=== PATIENT | female | born 1965 | race Caucasian/White ===

== ENCOUNTER → 2016-05-12 | Outpatient (CLI) | payer OTHER, MEDICARE ==
[~2016-05-12] MED LIST: ACETAMINOPHEN-H1 TA2 PO; BACTRIM DS 8001 TA1 PO; CLEOCIN HCL300 MG PO; CRESTOR10 M1 PO; FLEXERIL10 MG PO; HYDR25T PO; HYDROCHLOROTHIA25 M1 PO; HYDROCODONE BIT1 T11 PO; MOTRIN800 MG PO; POTASSIUM CHLO20 ME3 PO; PREDNISONE10 MG PO; PRILOSEC20 M2 PO; PSYCH MEDS; PYRIDIUM200 M1 PO; ROBITUSSIN DM 105 ML PO; ULTRAM50 MG PO; VITAMIN D PO; VITAMIN D50000 I3 PO
--- NOTE | ~2016-05-12 | PF ---
[place], [place] PULMONARY FUNCTION TEST NAME: MISSY ROBLEDO UNIT #: [id number] ROOM: DOCTOR: JULIANA RODGERS MD,NIKKI BIRTHDATE: [birth year] DOS: 05/12/2016 ORDERED BY: Chino Coronel, nurse practitioner. HISTORY: The patient was recorded 51-year-old outpatient, female, height of 65 inches, weight of 164 pounds. The testing was done for assessment of chronic cough which has noted productive of shortness of breath with exertion. There was no wheezing. Chronic tobacco use noted half a pack of cigarettes per day for 40 years. SPIROMETRY: The FVC was recorded at 3.37 liters, 93% predicted value normal. The FEV1 recorded with 2.75 liters and 96% predicted value normal as well. 11% improvement noted in FVC and 10% improvement noted in FEV1 did not meet the ATS criteria or significant partial improvement. The ratio of FEV1/FVC was recorded as 81%. Flow volume loop was essentially noted with suggestion of mild obstructive airway pattern. The lung volumes, thoracic gas volume recorded 114%, residual volume 126%, total lung capacity of 112%. Lung volumes were noted normal. The patient's lung diffusion noted mild to moderately decreased at 62% without correction of carbon monoxide or hemoglobin values. The patient's airway resistance and passive conductance were noted normal; however, partial improvement occurs, post-bronchodilator test. FINAL IMPRESSION: The test was suggested possibility of mild reversible obstructive airway pattern for this patient with possible diagnosis of bronchial asthma would be considered and clinical correlated to the patient current history. NIKKI ANDREWS MD CM:PFREPORT:PULMONARY FUNCTION TEST [id number] NIKKI RODGERS MD
== END | disposition home or self-care (01) ==
LOC: CP 08:19
DX: R05 Cough (principal)

== ENCOUNTER → 2016-06-25 | Outpatient (CLI) | payer OTHER, MEDICARE ==
[2016-06-25 11:03] LABS: BASO # 0.1 10*3/uL (0.0-0.1); EOS # 0.2 10*3/uL (0.0-0.4); EOS % 2.8 % (1.0-4.0); HEMATOCRIT 39.5 % (37.0-47.0); HEMOGLOBIN 13.6 g/dl (12.0-16.0); LYMPH # 2.2 10*3/uL (1.3-4.4); LYMPH % 32.6 % (27.0-41.0); MEAN CELL VOLUME 94.5 fl (81.0-99.0); MEAN CORPUSCULAR HGB 32.5 pg (27.0-31.0); MEAN CORPUSCULAR HGB CONC 34.4 g/dl (33.0-37.0); MEAN PLATELET VOLUME 9.1 fl (9.6-12.3); MONO # 0.4 10*3/uL (0.1-1.0); MONO % 6.2 % (3.0-9.0); NEUT # 3.9 10*3/uL (2.3-7.9); NEUT % 57.1 % (47.0-73.0); PLATELET COUNT AUTOMATED 351 10*3/uL (130-400); RED BLOOD COUNT 4.18 10*6/uL (4.10-5.10); RED CELL DISTRI WIDTH 12.8 % (0-14.5); WHITE BLOOD COUNT 6.8 10*3/uL (4.8-10.8)
[2016-06-25 11:34] LABS: ALBUMIN 3.9 gm/dl (3.1-4.5); ALKALINE PHOSPHATASE 77 U/L (45-117); BILIRUBIN, TOTAL 0.4 mg/dl (0.2-1.0); BUN 11 mg/dl (7-24); CARBON DIOXIDE 27 mmol/L (21-32); CHLORIDE 105 mmol/L (98-107); CHOLESTEROL 182 mg/dL (<200); EST GLOM FILT AFRICAN AMERICAN > 60 ml/min; GLUCOSE 105 mg/dL (65-99); HDL CHOLESTEROL 85 mg/dl (40-60); LDL CHOLESTEROL 75 mg/dL (9-159); POTASSIUM 3.6 mmol/L (3.5-5.1); SGOT/AST 25 IU/L (3-35); SGPT/ALT 25 U/L (12-78); SODIUM 142 mmol/L (136-145); TOTAL PROTEIN 7.9 gm/dL (6.4-8.2); TRIGLYCERIDES 111 mg/dl (<150); VLDL CHOLESTEROL 22 mg/dL (6-40)
[2016-06-25 11:37] LABS: HEMOGLOBIN A1c 5.3 % (4.8-5.6)
== END | disposition home or self-care (01) ==
LOC: LAB 10:24
PROVIDERS: Psychiatry & Neurology Psychiatry
DX: I10 Essential (primary) hypertension (principal); E78.2 Mixed hyperlipidemia; E55.9 Vitamin D deficiency, unspecified; R63.4 Abnormal weight loss; F31.9 Bipolar disorder, unspecified

== ENCOUNTER → 2016-07-21 | Outpatient (CLI) | payer OTHER, MEDICARE | END | disposition home or self-care (01) | LOC: US 07-19 18:00 | DX: R10.2 Pelvic and perineal pain (principal); R19.8 Other specified symptoms and signs involving the digestive system and abdomen ==

== ENCOUNTER → 2016-11-08 | Outpatient (CLI) | payer OTHER, MEDICARE ==
[2016-11-08 10:21] LABS: BASO # 0.1 10*3/uL (0.0-0.1); BASO % 0.8 % (0.0-1.0); EOS # 0.2 10*3/uL (0.0-0.4); EOS % 3.7 % (1.0-4.0); HEMATOCRIT 41.9 % (37.0-47.0); HEMOGLOBIN 14.2 g/dl (12.0-16.0); LYMPH # 2.4 10*3/uL (1.3-4.4); LYMPH % 39.6 % (27.0-41.0); MEAN CELL VOLUME 96.8 fl (81.0-99.0); MEAN CORPUSCULAR HGB 32.8 pg (27.0-31.0); MEAN CORPUSCULAR HGB CONC 33.9 g/dl (33.0-37.0); MEAN PLATELET VOLUME 9.2 fl (9.6-12.3); MONO # 0.5 10*3/uL (0.1-1.0); MONO % 8.2 % (3.0-9.0); NEUT # 2.8 10*3/uL (2.3-7.9); NEUT % 47.5 % (47.0-73.0); PLATELET COUNT AUTOMATED 280 10*3/uL (130-400); RED BLOOD COUNT 4.33 10*6/uL (4.10-5.10); RED CELL DISTRI WIDTH 12.6 % (0-14.5); WHITE BLOOD COUNT 5.9 10*3/uL (4.8-10.8)
[2016-11-08 10:45] LABS: ALBUMIN 3.6 gm/dl (3.1-4.5); ALKALINE PHOSPHATASE 86 U/L (45-117); BUN 9 mg/dl (7-24); CHLORIDE 107 mmol/L (98-107); CHOLESTEROL 189 mg/dL (<200); CREATININE 0.75 mg/dL (0.55-1.02); HDL CHOLESTEROL 55 mg/dl (40-60); LDL CHOLESTEROL 115 mg/dL (9-159); POTASSIUM 4.4 mmol/L (3.5-5.1); SGOT/AST 17 IU/L (3-35); SGPT/ALT 22 U/L (12-78); SODIUM 141 mmol/L (136-145); TOTAL PROTEIN 7.9 gm/dL (6.4-8.2); TRIGLYCERIDES 95 mg/dl (<150); VLDL CHOLESTEROL 19 mg/dL (6-40)
== END | disposition home or self-care (01) ==
LOC: LAB 09:57
PROVIDERS: Nurse Practitioner Family
DX: I10 Essential (primary) hypertension (principal); E78.4 Other hyperlipidemia; E56.9 Vitamin deficiency, unspecified; E55.9 Vitamin D deficiency, unspecified

== ENCOUNTER → 2017-03-20 | Outpatient (CLI) | payer OTHER, MEDICARE ==
[~2017-03-20] MED LIST changes: +Motrin,Rufen800 MG PO
[2017-03-20 10:21] LABS: BASO # 0.1 10*3/uL (0.0-0.1); BASO % 0.8 % (0.0-1.0); EOS # 0.1 10*3/uL (0.0-0.4); EOS % 1.6 % (1.0-4.0); HEMATOCRIT 39.8 % (37.0-47.0); HEMOGLOBIN 13.7 g/dl (12.0-16.0); LYMPH # 2.3 10*3/uL (1.3-4.4); LYMPH % 29.2 % (27.0-41.0); MEAN CELL VOLUME 92.3 fl (81.0-99.0); MEAN CORPUSCULAR HGB 31.8 pg (27.0-31.0); MEAN CORPUSCULAR HGB CONC 34.4 g/dl (33.0-37.0); MEAN PLATELET VOLUME 9.4 fl (9.6-12.3); MONO # 0.6 10*3/uL (0.1-1.0); MONO % 7.3 % (3.0-9.0); NEUT # 4.8 10*3/uL (2.3-7.9); NEUT % 60.8 % (47.0-73.0); PLATELET COUNT AUTOMATED 362 10*3/uL (130-400); RED BLOOD COUNT 4.31 10*6/uL (4.10-5.10); RED CELL DISTRI WIDTH 12.2 % (0-14.5); WHITE BLOOD COUNT 7.9 10*3/uL (4.8-10.8)
[2017-03-20 10:35] LABS: ALBUMIN 3.8 gm/dl (3.1-4.5); ALKALINE PHOSPHATASE 83 U/L (45-117); BUN 10 mg/dl (7-24); CHLORIDE 103 mmol/L (98-107); CHOLESTEROL 209 mg/dL (<200); CREATININE 0.81 mg/dL (0.55-1.02); HDL CHOLESTEROL 60 mg/dl (40-60); LDL CHOLESTEROL 123 mg/dL (9-159); SGOT/AST 14 IU/L (3-35); SGPT/ALT 17 U/L (12-78); SODIUM 138 mmol/L (136-145); TOTAL PROTEIN 7.7 gm/dL (6.4-8.2); TRIGLYCERIDES 132 mg/dl (<150); VLDL CHOLESTEROL 26 mg/dL (6-40)
== END ==
LOC: LAB 09:46
PROVIDERS: Nurse Practitioner Family
DX: E78.2 Mixed hyperlipidemia (principal); F32.9 Major depressive disorder, single episode, unspecified; J44.9 Chronic obstructive pulmonary disease, unspecified

== ENCOUNTER 2017-03-24 23:06 | Emergency (ER) | payer OTHER, MEDICARE ==
[~2017-03-24] VITALS: Ht 172.7 cm; Wt 68.0 kg
[~2017-03-24 23:06] MED LIST changes: -Motrin,Rufen800 MG PO
[2017-03-25] MEDS ORDERED: Motrin,Rufen800 MG PO (02:19)
== END 2017-03-25 02:31 | disposition home or self-care (01) ==
LOC: ED 23:06
DX: M25.512 Pain in left shoulder (principal); F17.200 Nicotine dependence, unspecified, uncomplicated; Z98.890 Other specified postprocedural states; Z90.49 Acquired absence of other specified parts of digestive tract; Z88.5 Allergy status to narcotic agent; Z88.0 Allergy status to penicillin; Z79.899 Other long term (current) drug therapy; X50.1XXA Overexertion from prolonged static or awkward postures, initial encounter; Y93.89 Activity, other specified; Y92.89 Other specified places as the place of occurrence of the external cause; Y99.9 Unspecified external cause status

== ENCOUNTER → 2017-06-22 | Outpatient (CLI) | payer OTHER, MEDICARE ==
[~2017-06-22] MED LIST changes: +Motrin,Rufen800 MG PO
[2017-06-22 09:32] LABS: BASO # 0.1 10*3/uL (0.0-0.1); EOS # 0.2 10*3/uL (0.0-0.4); EOS % 2.5 % (1.0-4.0); HEMATOCRIT 40.1 % (37.0-47.0); HEMOGLOBIN 13.4 g/dl (12.0-16.0); LYMPH # 2.2 10*3/uL (1.3-4.4); LYMPH % 36.7 % (27.0-41.0); MEAN CELL VOLUME 98.8 fl (81.0-99.0); MEAN CORPUSCULAR HGB CONC 33.4 g/dl (33.0-37.0); MEAN PLATELET VOLUME 9.7 fl (9.6-12.3); MONO # 0.5 10*3/uL (0.1-1.0); MONO % 7.9 % (3.0-9.0); NEUT # 3.1 10*3/uL (2.3-7.9); NEUT % 51.7 % (47.0-73.0); PLATELET COUNT AUTOMATED 336 10*3/uL (130-400); RED BLOOD COUNT 4.06 10*6/uL (4.10-5.10); RED CELL DISTRI WIDTH 12.7 % (0-14.5); WHITE BLOOD COUNT 6.1 10*3/uL (4.8-10.8)
[2017-06-22 09:46] LABS: ALBUMIN 3.8 gm/dl (3.1-4.5); ALKALINE PHOSPHATASE 69 U/L (45-117); BUN 11 mg/dl (7-24); CHLORIDE 104 mmol/L (98-107); CHOLESTEROL 184 mg/dL (<200); CREATININE 0.75 mg/dL (0.55-1.02); HDL CHOLESTEROL 58 mg/dl (40-60); LDL CHOLESTEROL 105 mg/dL (9-159); POTASSIUM 3.8 mmol/L (3.5-5.1); SGOT/AST 16 IU/L (3-35); SGPT/ALT 21 U/L (12-78); SODIUM 138 mmol/L (136-145); TOTAL PROTEIN 7.4 gm/dL (6.4-8.2); TRIGLYCERIDES 103 mg/dl (<150); VLDL CHOLESTEROL 21 mg/dL (6-40)
== END | disposition home or self-care (01) ==
LOC: LAB 08:20
PROVIDERS: Nurse Practitioner Family
DX: F32.9 Major depressive disorder, single episode, unspecified (principal); I10 Essential (primary) hypertension; E56.9 Vitamin deficiency, unspecified; E78.2 Mixed hyperlipidemia; J44.9 Chronic obstructive pulmonary disease, unspecified

== ENCOUNTER → 2017-10-04 | Outpatient (CLI) | payer OTHER | END | disposition home or self-care (01) | LOC: MAMMO 09-11 16:20 | DX: Z12.31 Encounter for screening mammogram for malignant neoplasm of breast (principal) ==

== ENCOUNTER 2018-01-31 13:07 | Emergency (ER) | payer OTHER, MEDICAID ==
[~2018-01-31] VITALS: Wt 86.2 kg
[2018-01-31] MEDS ORDERED: HYDROCHLOROTHIA25 M1 PO (13:14)
[2018-01-31] MEDS ORDERED: ARIPIPRAZOLE30 MG PO (13:15)
[2018-01-31] MEDS ORDERED: OMEPRAZOLE D/R20 MG PO (13:15)
[2018-01-31] MEDS ORDERED: MIRTAZAPINE30 M2 PO (13:15)
[2018-01-31] MEDS ORDERED: PROAIR HFA8.5 GM INH (13:15)
[2018-01-31] MEDS ORDERED: VITAMIN D32000 UNI1 PO (13:16)
[2018-01-31] MEDS ORDERED: VITAMIN D50000 UNIT PO (13:16)
[2018-01-31] MEDS ORDERED: ATORVASTATIN CA10 M1 PO (13:16)
== END 2018-01-31 15:36 | disposition home or self-care (01) ==
LOC: ED 13:07
DX: M62.81 Muscle weakness (generalized) (principal); R20.2 Paresthesia of skin; M25.571 Pain in right ankle and joints of right foot; R20.0 Anesthesia of skin; R51 Headache; I10 Essential (primary) hypertension; E78.5 Hyperlipidemia, unspecified; F17.200 Nicotine dependence, unspecified, uncomplicated; Z88.0 Allergy status to penicillin; Z88.6 Allergy status to analgesic agent; Z79.899 Other long term (current) drug therapy; W18.39XA Other fall on same level, initial encounter; Y93.89 Activity, other specified; Y92.89 Other specified places as the place of occurrence of the external cause; Y99.8 Other external cause status

== ENCOUNTER → 2018-02-08 | Outpatient (CLI) | payer OTHER, MEDICAID ==
[~2018-02-08] MED LIST changes: +ARIPIPRAZOLE30 MG PO; +ATORVASTATIN CA10 M1 PO; +MIRTAZAPINE30 M2 PO; +OMEPRAZOLE D/R20 MG PO; +PROAIR HFA8.5 GM INH; +VITAMIN D32000 UNI1 PO; +VITAMIN D50000 UNIT PO
== END | disposition home or self-care (01) ==
LOC: MRI 02:48
DX: R51 Headache (principal); I10 Essential (primary) hypertension; R29.898 Other symptoms and signs involving the musculoskeletal system; R29.6 Repeated falls

== ENCOUNTER 2019-10-12 17:02 | Emergency (ER) | payer MEDICARE ==
[~2019-10-12] VITALS: Wt 81.6 kg
== END 2019-10-12 18:09 | disposition home or self-care (01) ==
LOC: ED 17:02
DX: S79.912A Unspecified injury of left hip, initial encounter (principal); I10 Essential (primary) hypertension; E78.5 Hyperlipidemia, unspecified; F17.210 Nicotine dependence, cigarettes, uncomplicated; Z88.0 Allergy status to penicillin; Z88.6 Allergy status to analgesic agent; Z79.899 Other long term (current) drug therapy; W01.0XXA Fall on same level from slipping, tripping and stumbling without subsequent striking against object, initial encounter; Y93.89 Activity, other specified; Y92.89 Other specified places as the place of occurrence of the external cause; Y99.8 Other external cause status

== ENCOUNTER 2020-07-01 11:41 | Emergency (ER) | payer SELFPAY ==
[~2020-07-01] VITALS: Wt 74.4 kg
[2020-07-01] MEDS ORDERED: ZOFRAN4 MG PO (15:40)
== END 2020-07-01 15:43 | disposition home or self-care (01) ==
LOC: ED 11:41
DX: G43.909 Migraine, unspecified, not intractable, without status migrainosus (principal); F17.200 Nicotine dependence, unspecified, uncomplicated; Z88.5 Allergy status to narcotic agent; Z88.0 Allergy status to penicillin; Z79.899 Other long term (current) drug therapy; Z90.49 Acquired absence of other specified parts of digestive tract; Z98.890 Other specified postprocedural states; Z98.51 Tubal ligation status

== ENCOUNTER 2020-10-04 18:32 | Emergency (ER) | payer MEDICARE, MEDICAID ==
[~2020-10-04] VITALS: Ht 167.6 cm; Wt 73.5 kg
[~2020-10-04 18:32] MED LIST changes: +ZOFRAN4 MG PO
[2020-10-04] MEDS ORDERED: METHOCARBAMOL750 M1 PO (19:30)
[2020-10-04] MEDS ORDERED: NAPROXEN250 MG PO (19:30)
== END 2020-10-04 19:34 | disposition home or self-care (01) ==
LOC: ED 18:32
DX: M25.511 Pain in right shoulder (principal); M54.6 Pain in thoracic spine; Z88.6 Allergy status to analgesic agent; Z88.0 Allergy status to penicillin; Z79.899 Other long term (current) drug therapy

== ENCOUNTER 2020-10-13 16:51 | Emergency (ER) | payer MEDICARE, MEDICAID ==
[~2020-10-13] VITALS: Ht 167.6 cm; Wt 73.5 kg
[~2020-10-13 16:51] MED LIST changes: +METHOCARBAMOL750 M1 PO; +NAPROXEN250 MG PO
[2020-10-13] MEDS ORDERED: NAPROXEN250 MG PO (20:39)
== END 2020-10-13 20:45 | disposition home or self-care (01) ==
LOC: ED 16:51
DX: M25.511 Pain in right shoulder (principal); F17.200 Nicotine dependence, unspecified, uncomplicated; Z88.5 Allergy status to narcotic agent; Z88.0 Allergy status to penicillin; Z79.899 Other long term (current) drug therapy; Z90.49 Acquired absence of other specified parts of digestive tract; Z98.890 Other specified postprocedural states; Z87.442 Personal history of urinary calculi; Z98.51 Tubal ligation status

== ENCOUNTER → 2020-10-15 | Outpatient (CLI) | payer MEDICARE, MEDICAID ==
[2020-10-15 11:46] LABS: BASO # 0.1 10*3/uL (0.0-0.1); EOS # 0.2 10*3/uL (0.0-0.4); EOS % 2.2 % (1.0-4.0); HEMATOCRIT 41.8 % (37.0-47.0); LYMPH # 2.3 10*3/uL (1.3-4.4); LYMPH % 27.8 % (27.0-41.0); MEAN CELL VOLUME 89.3 fl (81.0-99.0); MEAN CORPUSCULAR HGB 29.1 pg (27.0-31.0); MEAN CORPUSCULAR HGB CONC 32.5 g/dl (33.0-37.0); MONO # 0.6 10*3/uL (0.1-1.0); MONO % 6.6 % (3.0-9.0); NEUT # 5.1 10*3/uL (2.3-7.9); PLATELET COUNT AUTOMATED 465 10*3/uL (130-400); RED BLOOD COUNT 4.68 10*6/uL (4.10-5.10); RED CELL DISTRI WIDTH 13.7 % (0-14.5); WHITE BLOOD COUNT 8.3 10*3/uL (4.8-10.8)
[2020-10-15 11:57] LABS: ALBUMIN 3.7 gm/dl (3.1-4.5); ALKALINE PHOSPHATASE 119 U/L (45-117); BUN 12 mg/dl (7-24); CHLORIDE 106 mmol/L (98-107); CHOLESTEROL 177 mg/dL (<200); CREATININE 0.69 mg/dL (0.55-1.02); LDL CHOLESTEROL 103 mg/dL (9-159); POTASSIUM 4.2 mmol/L (3.5-5.1); SGOT/AST 17 IU/L (3-35); SGPT/ALT 19 U/L (12-78); SODIUM 137 mmol/L (136-145); TOTAL PROTEIN 8.2 gm/dL (6.4-8.2); TRIGLYCERIDES 155 mg/dl (<150)
== END | disposition home or self-care (01) ==
LOC: LAB 11:19
PROVIDERS: ATTEND Nurse Practitioner Family
DX: I10 Essential (primary) hypertension (principal); E78.2 Mixed hyperlipidemia; E55.9 Vitamin D deficiency, unspecified

== ENCOUNTER → 2020-12-06 | Outpatient (CLI) | payer MEDICARE, MEDICAID | END | disposition home or self-care (01) | LOC: MRI 12:08 | PROVIDERS: ATTEND Orthopaedic Surgery | DX: M47.22 Other spondylosis with radiculopathy, cervical region (principal); M48.02 Spinal stenosis, cervical region; M50.10 Cervical disc disorder with radiculopathy, unspecified cervical region ==

== ENCOUNTER 2021-01-10 17:29 | Emergency (ER) | payer MEDICARE, MEDICAID ==
[~2021-01-10] VITALS: Wt 73.5 kg
== END 2021-01-10 21:39 | disposition left against medical advice (07) ==
LOC: ED 17:29
DX: J02.9 Acute pharyngitis, unspecified (principal); R11.10 Vomiting, unspecified; R05.9 Cough, unspecified; Z53.21 Procedure and treatment not carried out due to patient leaving prior to being seen by health care provider

== ENCOUNTER 2021-01-13 17:07 | Emergency (ER) | payer MEDICARE, MEDICAID ==
[~2021-01-13] VITALS: Ht 167.6 cm; Wt 72.6 kg
[2021-01-13 19:01] LABS: HEMATOCRIT 36.2 % (37.0-47.0); MEAN CELL VOLUME 85.4 fl (81.0-99.0); MEAN CORPUSCULAR HGB 27.8 pg (27.0-31.0); MEAN CORPUSCULAR HGB CONC 32.6 g/dl (33.0-37.0); MEAN PLATELET VOLUME 8.8 fl (9.6-12.3); PLATELET COUNT AUTOMATED 541 10*3/uL (130-400); RED BLOOD COUNT 4.24 10*6/uL (4.10-5.10); RED CELL DISTRI WIDTH 12.6 % (0-14.5); WHITE BLOOD COUNT 7.8 10*3/uL (4.8-10.8)
[2021-01-13 19:16] LABS: ALBUMIN 2.6 gm/dl (3.1-4.5); ALKALINE PHOSPHATASE 81 U/L (45-117); BUN 9 mg/dl (7-24); CHLORIDE 103 mmol/L (98-107); CREATININE 0.66 mg/dL (0.55-1.02); LIPASE 52 U/L (73-393); POTASSIUM 3.2 mmol/L (3.5-5.1); SGOT/AST 12 IU/L (3-35); SGPT/ALT 11 U/L (12-78); SODIUM 135 mmol/L (136-145); TOTAL PROTEIN 7.7 gm/dL (6.4-8.2)
[2021-01-13 19:36] LABS: ATYPICAL LYMPHS 5 % (0-0); TOTAL CELLS COUNTED 100 #CELLS
[2021-01-13 19:37] LABS: PLATELET SUFFICIENCY HIGH (NORMAL)
[2021-01-13 22:04] LABS: BILIRUBIN Negative (Negative); BLOOD Negative (Negative); CLARITY Clear (Clear); COLOR Yellow (Yellow); GLUCOSE Negative (Negative); KETONE 1+ (Negative); LEUKO ESTERASE Negative (Negative); NITRITE Negative (Negative); PH 5.5 (4.5-8.0); SPECIFIC GRAVITY >= 1.030 (1.001-1.030); UROBILINOGEN 0.2 E.U./dl (0.0-1.0)
[2021-01-13 22:18] LABS: BACTERIA TRACE; MUCOUS TRACE; WBC 0-2 wbc/hpf (0-5)
== END 2021-01-14 16:21 | disposition short-term general hospital (02) ==
LOC: ED 17:07
PROVIDERS: Physician Assistant
DX: R19.00 Intra-abdominal and pelvic swelling, mass and lump, unspecified site (principal); F17.200 Nicotine dependence, unspecified, uncomplicated; Z88.6 Allergy status to analgesic agent; Z88.0 Allergy status to penicillin; Z79.899 Other long term (current) drug therapy

== ENCOUNTER 2021-01-23 15:35 | Emergency (ER) | payer MEDICARE, MEDICAID ==
[~2021-01-23] VITALS: Ht 167.6 cm; Wt 72.6 kg
[2021-01-23] MEDS ORDERED: SENNA-LAX8.6 MG PO (15:48)
[2021-01-23] MEDS ORDERED: Lovenox40 MG/0.4 PO (15:49)
[2021-01-23 16:12] LABS: BASO # 0.1 10*3/uL (0.0-0.1); BASO % 0.7 % (0.0-1.0); EOS # 0.1 10*3/uL (0.0-0.4); EOS % 0.8 % (1.0-4.0); LYMPH % 20.3 % (27.0-41.0); MEAN CELL VOLUME 85.4 fl (81.0-99.0); MEAN CORPUSCULAR HGB 27.6 pg (27.0-31.0); MEAN CORPUSCULAR HGB CONC 32.3 g/dl (33.0-37.0); MEAN PLATELET VOLUME 8.8 fl (9.6-12.3); MONO # 0.8 10*3/uL (0.1-1.0); MONO % 8.5 % (3.0-9.0); NEUT # 6.8 10*3/uL (2.3-7.9); NEUT % 69.3 % (47.0-73.0); PLATELET COUNT AUTOMATED 709 10*3/uL (130-400); RED CELL DISTRI WIDTH 13.2 % (0-14.5); WHITE BLOOD COUNT 9.8 10*3/uL (4.8-10.8)
[2021-01-23 16:32] LABS: ALBUMIN 2.1 gm/dl (3.1-4.5); ALKALINE PHOSPHATASE 81 U/L (45-117); BUN 8 mg/dl (7-24); CHLORIDE 102 mmol/L (98-107); LIPASE 18 U/L (73-393); POTASSIUM 3.5 mmol/L (3.5-5.1); SGOT/AST 12 IU/L (3-35); SGPT/ALT 9 U/L (12-78); SODIUM 137 mmol/L (136-145); TOTAL PROTEIN 6.7 gm/dL (6.4-8.2)
[2021-01-23] MEDS ORDERED: PHENERGAN25 M3 PO (18:04)
== END 2021-01-23 18:44 | disposition home or self-care (01) ==
LOC: ED 15:35
PROVIDERS: Physician Assistant
DX: R11.2 Nausea with vomiting, unspecified (principal); Z88.0 Allergy status to penicillin; Z88.6 Allergy status to analgesic agent; Z79.899 Other long term (current) drug therapy

== ENCOUNTER 2021-02-04 03:11 | Emergency (ER) | payer MEDICARE, MEDICAID ==
[~2021-02-04] VITALS: Ht 167.6 cm; Wt 66.2 kg
[~2021-02-04 03:11] MED LIST changes: +Lovenox40 MG/0.4 PO; +PHENERGAN25 M3 PO; +SENNA-LAX8.6 MG PO
[2021-02-04 05:39] LABS: ALBUMIN 2.4 gm/dl (3.1-4.5); ALKALINE PHOSPHATASE 77 U/L (45-117); BUN 11 mg/dl (7-24); CHLORIDE 100 mmol/L (98-107); CREATININE 0.47 mg/dL (0.55-1.02); LIPASE 46 U/L (73-393); POTASSIUM 3.2 mmol/L (3.5-5.1); SGOT/AST 21 IU/L (3-35); SGPT/ALT 19 U/L (12-78); SODIUM 136 mmol/L (136-145); TOTAL PROTEIN 6.7 gm/dL (6.4-8.2)
[2021-02-04 06:02] LABS: BILIRUBIN Negative (Negative); BLOOD Negative (Negative); CLARITY Clear (Clear); COLOR Yellow (Yellow); GLUCOSE Trace (Negative); KETONE Trace (Negative); LEUKO ESTERASE Negative (Negative); NITRITE Negative (Negative); PH 7.5 (4.5-8.0); SPECIFIC GRAVITY >= 1.030 (1.001-1.030)
[2021-02-04 06:07] LABS: HEMATOCRIT 30.8 % (37.0-47.0); MEAN CELL VOLUME 84.4 fl (81.0-99.0); MEAN CORPUSCULAR HGB 27.4 pg (27.0-31.0); MEAN CORPUSCULAR HGB CONC 32.5 g/dl (33.0-37.0); MEAN PLATELET VOLUME 9.6 fl (9.6-12.3); PLATELET COUNT AUTOMATED 388 10*3/uL (130-400); RED BLOOD COUNT 3.65 10*6/uL (4.10-5.10); RED CELL DISTRI WIDTH 13.7 % (0-14.5); WHITE BLOOD COUNT 3.4 10*3/uL (4.8-10.8)
[2021-02-04 06:26] LABS: BACTERIA TRACE
[2021-02-04 06:48] LABS: ATYPICAL LYMPHS 3 % (0-0); BASOPHILS 2 % (0-1); PLATELET SUFFICIENCY NORMAL (NORMAL); TOTAL CELLS COUNTED 100 #CELLS
== END 2021-02-04 07:27 | disposition home or self-care (01) ==
LOC: ED 03:11
PROVIDERS: Emergency Medicine
DX: C56.9 Malignant neoplasm of unspecified ovary (principal); I10 Essential (primary) hypertension; G43.909 Migraine, unspecified, not intractable, without status migrainosus; F17.200 Nicotine dependence, unspecified, uncomplicated; Z88.6 Allergy status to analgesic agent; Z88.0 Allergy status to penicillin; Z79.899 Other long term (current) drug therapy

== ENCOUNTER 2021-02-22 11:46 | Inpatient (IN) | payer MEDICARE, MEDICAID ==
[~2021-02-22] VITALS: Ht 167.6 cm; Wt 61.2 kg
[2021-02-22 12:04] VITALS: BP 109/52
[2021-02-22 12:39] LABS: HEMATOCRIT 33.9 % (37.0-47.0); MEAN CELL VOLUME 83.9 fl (81.0-99.0); MEAN CORPUSCULAR HGB CONC 33.3 g/dl (33.0-37.0); MEAN PLATELET VOLUME 9.1 fl (9.6-12.3); PLATELET COUNT AUTOMATED 423 10*3/uL (130-400); RED BLOOD COUNT 4.04 10*6/uL (4.10-5.10); RED CELL DISTRI WIDTH 17.9 % (0-14.5); WHITE BLOOD COUNT 3.3 10*3/uL (4.8-10.8)
[2021-02-22 12:46] LABS: ACT PARTIAL THROMBO TIME 25.4 SECONDS (20.0-32.1)
[2021-02-22 12:51] VITALS: BP 107/63
[2021-02-22 12:53] LABS: ALBUMIN 3.4 gm/dl (3.1-4.5); ALKALINE PHOSPHATASE 103 U/L (45-117); BUN 18 mg/dl (7-24); CHLORIDE 99 mmol/L (98-107); CREATININE 0.78 mg/dL (0.55-1.02); POTASSIUM 3.8 mmol/L (3.5-5.1); SGOT/AST 15 IU/L (3-35); SGPT/ALT 25 U/L (12-78); SODIUM 132 mmol/L (136-145); TOTAL PROTEIN 8.6 gm/dL (6.4-8.2)
[2021-02-22 12:59] LABS: ATYPICAL LYMPHS 3 % (0-0); BASOPHILS 2 % (0-1); LIPASE 93 U/L (73-393); PLATELET SUFFICIENCY HIGH (NORMAL); POLYCHROMASIA SLIGHT; TOTAL CELLS COUNTED 100 #CELLS
[2021-02-22 13:47] VITALS: BP 107/79
[2021-02-22 15:11] VITALS: BP 99/61
[2021-02-22 16:44] VITALS: BP 114/81
[2021-02-22 20:26] LABS: BILIRUBIN Negative (Negative); BLOOD Negative (Negative); CLARITY Clear (Clear); COLOR Yellow (Yellow); GLUCOSE Trace (Negative); KETONE Negative (Negative); LEUKO ESTERASE Negative (Negative); NITRITE Negative (Negative); SPECIFIC GRAVITY >= 1.030 (1.001-1.030)
[2021-02-22 20:49] LABS: EPITHELIAL CELLS 0-2; MUCOUS 2+
[2021-02-22 20:50] LABS: BACTERIA TRACE; COARSE GRANULAR CAST 0-2
[2021-02-22 22:42] VITALS: BP 118/81
[2021-02-23 03:11] VITALS: BP 134/84
[2021-02-23 06:26] VITALS: BP 108/69
[2021-02-23 06:26] LABS: HEMATOCRIT 29.4 % (37.0-47.0); MEAN CELL VOLUME 85.7 fl (81.0-99.0); MEAN CORPUSCULAR HGB CONC 32.7 g/dl (33.0-37.0); MEAN PLATELET VOLUME 9.4 fl (9.6-12.3); PLATELET COUNT AUTOMATED 346 10*3/uL (130-400); RED BLOOD COUNT 3.43 10*6/uL (4.10-5.10); RED CELL DISTRI WIDTH 17.7 % (0-14.5); WHITE BLOOD COUNT 3.4 10*3/uL (4.8-10.8)
[2021-02-23 06:27] LABS: CHLORIDE 105 mmol/L (98-107); POTASSIUM 3.6 mmol/L (3.5-5.1); SODIUM 137 mmol/L (136-145)
[2021-02-23 06:36] LABS: ALBUMIN 2.8 gm/dl (3.1-4.5); ALKALINE PHOSPHATASE 85 U/L (45-117); BUN 19 mg/dl (7-24); CHOLESTEROL 202 mg/dL (<200); CREATININE 0.57 mg/dL (0.55-1.02); FREE T4 1.18 ng/dl (0.76-1.46); LDL CHOLESTEROL 123 mg/dL (9-159); SGOT/AST 17 IU/L (3-35); SGPT/ALT 24 U/L (12-78); TOTAL PROTEIN 7.2 gm/dL (6.4-8.2); TRIGLYCERIDES 201 mg/dl (<150)
[2021-02-23 06:57] LABS: VITAMIN D, 25-HYDROXY 17.7 ng/mL (30-100)
[2021-02-23 07:22] LABS: ATYPICAL LYMPHS 1 % (0-0); BASOPHILS 2 % (0-1); PLATELET SUFFICIENCY NORMAL (NORMAL); TOTAL CELLS COUNTED 100 #CELLS
[2021-02-23 10:03] VITALS: BP 97/51
[2021-02-23 13:13] VITALS: BP 143/65
[2021-02-23 15:53] VITALS: BP 109/63
== END 2021-02-23 20:03 | disposition home or self-care (01) | DRG 641 ==
LOC: ED 11:46 → EDHOLD 18:35
PROVIDERS: Emergency Medicine; Internal Medicine; ADMIT Internal Medicine; ATTEND Internal Medicine
DX: E86.0 Dehydration (principal); R65.10 Systemic inflammatory response syndrome (SIRS) of non-infectious origin without acute organ dysfunction; C56.9 Malignant neoplasm of unspecified ovary; D75.839 Thrombocytosis, unspecified; D64.9 Anemia, unspecified; R62.7 Adult failure to thrive; R73.9 Hyperglycemia, unspecified; E78.5 Hyperlipidemia, unspecified; I10 Essential (primary) hypertension; R25.2 Cramp and spasm; I95.9 Hypotension, unspecified; E87.1 Hypo-osmolality and hyponatremia; F31.9 Bipolar disorder, unspecified; Z90.49 Acquired absence of other specified parts of digestive tract; Z87.891 Personal history of nicotine dependence; Z88.0 Allergy status to penicillin; Z88.5 Allergy status to narcotic agent; Z79.82 Long term (current) use of aspirin; Z79.899 Other long term (current) drug therapy

== ENCOUNTER → 2021-06-21 | Outpatient (CLI) | payer MEDICARE, MEDICAID | END | disposition home or self-care (01) | LOC: CARD 08:07 | PROVIDERS: ATTEND Obstetrics & Gynecology Gynecologic Oncology | DX: R00.0 Tachycardia, unspecified (principal); C56.9 Malignant neoplasm of unspecified ovary ==

== ENCOUNTER → 2022-01-16 | Outpatient (CLI) | payer MEDICARE, MEDICAID ==
[2022-01-16 15:24] LABS: HEMATOCRIT 34.2 % (37.0-47.0); MANUAL DIFF REFLEX YES; MEAN CELL VOLUME 105.6 fl (81.0-99.0); MEAN CORPUSCULAR HGB 35.8 pg (27.0-31.0); MEAN CORPUSCULAR HGB CONC 33.9 g/dl (33.0-37.0); MEAN PLATELET VOLUME 8.8 fl (9.6-12.3); NUCLEATED RED BLOOD CELL 0.3 10*3/uL (0.0-0.0); NUCLEATED RED BLOOD CELL 3.7 % (0.0-0.0); PLATELET COUNT AUTOMATED 428 10*3/uL (130-400); RED BLOOD COUNT 3.24 10*6/uL (4.10-5.10); RED CELL DISTRI WIDTH 14.7 % (0-14.5); WHITE BLOOD COUNT 6.8 10*3/uL (4.8-10.8)
[2022-01-16 15:40] LABS: ALKALINE PHOSPHATASE 98 U/L (45-117); BUN 13 mg/dl (7-24); CHLORIDE 107 mmol/L (98-107); POTASSIUM 3.9 mmol/L (3.5-5.1); SGPT/ALT 18 U/L (12-78); SODIUM 138 mmol/L (136-145); TOTAL PROTEIN 7.6 gm/dL (6.4-8.2)
[2022-01-16 15:54] LABS: ATYPICAL LYMPHS 1 % (0-0); BASOPHILS 1 % (0-1); PLATELET SUFFICIENCY HIGH (NORMAL); POLYCHROMASIA SLIGHT; TOTAL CELLS COUNTED 100 #CELLS
[2022-01-16 15:55] LABS: BURR CELLS FEW
== END | disposition home or self-care (01) ==
LOC: LAB 15:05
PROVIDERS: Obstetrics & Gynecology Gynecologic Oncology
DX: C56.9 Malignant neoplasm of unspecified ovary (principal)

== ENCOUNTER 2022-02-08 17:46 | Emergency (ER) | payer OTHER, MEDICAID ==
[~2022-02-08] VITALS: Ht 172.7 cm; Wt 69.9 kg
[2022-02-08] MEDS ORDERED: NAPROSYN500 MG PO (23:09)
[2022-02-08] MEDS ORDERED: ZANAFLEX4 MG PO (23:09)
== END 2022-02-08 23:19 | disposition home or self-care (01) ==
LOC: ED 17:46
DX: S16.1XXA Strain of muscle, fascia and tendon at neck level, initial encounter (principal); Z88.0 Allergy status to penicillin; Z88.6 Allergy status to analgesic agent; Z79.899 Other long term (current) drug therapy; Z90.49 Acquired absence of other specified parts of digestive tract; Z98.890 Other specified postprocedural states; Z87.891 Personal history of nicotine dependence; X58.XXXA Exposure to other specified factors, initial encounter; Y93.89 Activity, other specified; Y92.89 Other specified places as the place of occurrence of the external cause; Y99.8 Other external cause status

== ENCOUNTER 2022-07-16 20:16 | Emergency (ER) | payer OTHER, MEDICAID ==
[~2022-07-16] VITALS: Ht 170.1 cm; Wt 63.5 kg
[~2022-07-16 20:16] MED LIST changes: +NAPROSYN500 MG PO; +ZANAFLEX4 MG PO
[2022-07-16 20:42] LABS: HEMATOCRIT 32.2 % (37.0-47.0); MEAN CORPUSCULAR HGB CONC 35.1 g/dl (33.0-37.0); MEAN PLATELET VOLUME 8.9 fl (9.6-12.3); NUCLEATED RED BLOOD CELL 0.7 10*3/uL (0.0-0.0); NUCLEATED RED BLOOD CELL 7.9 % (0.0-0.0); PLATELET COUNT AUTOMATED 394 10*3/uL (130-400); RED CELL DISTRI WIDTH 15.7 % (0-14.5); WHITE BLOOD COUNT 8.5 10*3/uL (4.8-10.8)
[2022-07-16 20:45] LABS: MANUAL DIFF REFLEX YES
[2022-07-16 20:52] LABS: ACT PARTIAL THROMBO TIME 23.9 SECONDS (20.0-32.1)
[2022-07-16 21:00] LABS: ALKALINE PHOSPHATASE 80 U/L (46-116); CHLORIDE 106 mmol/L (98-107); POTASSIUM 2.8 mmol/L (3.4-5.1); TOTAL PROTEIN 7.4 gm/dL (6.0-8.0)
[2022-07-16 21:02] LABS: BUN < 5 mg/dl (9-23); SGPT/ALT < 7 U/L (10-49)
[2022-07-16 21:20] LABS: ATYPICAL LYMPHS 1 % (0-0); BASOPHILS 1 % (0-1); HOWELL-JOLLY BODIES FEW; PLATELET SUFFICIENCY NORMAL (NORMAL); TOTAL CELLS COUNTED 100 #CELLS
== END 2022-07-17 00:23 | disposition home or self-care (01) ==
LOC: ED 20:16
PROVIDERS: Emergency Medicine
DX: R07.89 Other chest pain (principal); E87.6 Hypokalemia; Z88.5 Allergy status to narcotic agent; Z88.0 Allergy status to penicillin; R73.9 Hyperglycemia, unspecified; E87.1 Hypo-osmolality and hyponatremia; F31.9 Bipolar disorder, unspecified; I10 Essential (primary) hypertension; E78.5 Hyperlipidemia, unspecified; Z90.12 Acquired absence of left breast and nipple; Z90.49 Acquired absence of other specified parts of digestive tract; Z98.890 Other specified postprocedural states; Z87.891 Personal history of nicotine dependence; F10.10 Alcohol abuse, uncomplicated

== ENCOUNTER 2022-08-14 18:36 | Emergency (ER) | payer OTHER, MEDICAID ==
[~2022-08-14] VITALS: Ht 167.6 cm; Wt 77.1 kg
[2022-08-14] MEDS ORDERED: COMPAZINE10 M1 PO (18:57)
[2022-08-14] MEDS ORDERED: MINIPRESS1 M1 PO (18:59)
[2022-08-14] MEDS ORDERED: ZYPREXA2.5 MG PO (18:59)
[2022-08-14] MEDS ORDERED: LATU40TA PO (18:59)
[2022-08-14] MEDS ORDERED: LYNPARZA150 MG PO (19:00)
[2022-08-14] MEDS ORDERED: XARELTO15 M1 PO (20:42)
== END 2022-08-14 21:07 | disposition home or self-care (01) ==
LOC: ED 18:36
DX: I26.99 Other pulmonary embolism without acute cor pulmonale (principal); M25.511 Pain in right shoulder; I10 Essential (primary) hypertension; F31.9 Bipolar disorder, unspecified; E78.5 Hyperlipidemia, unspecified; Z88.5 Allergy status to narcotic agent; Z88.0 Allergy status to penicillin; Z90.49 Acquired absence of other specified parts of digestive tract; Z98.890 Other specified postprocedural states; Z90.12 Acquired absence of left breast and nipple; Z98.51 Tubal ligation status; F10.10 Alcohol abuse, uncomplicated; Z87.891 Personal history of nicotine dependence

== ENCOUNTER → 2022-08-31 | Outpatient (CLI) | payer MEDICARE, MEDICAID ==
[~2022-08-31] MED LIST changes: +COMPAZINE10 M1 PO; +LATU40TA PO; +LYNPARZA150 MG PO; +MINIPRESS1 M1 PO; +XARELTO15 M1 PO; +ZYPREXA2.5 MG PO
== END | disposition home or self-care (01) ==
LOC: CARD 12:57
PROVIDERS: ATTEND Surgery
DX: K43.2 Incisional hernia without obstruction or gangrene (principal)

== ENCOUNTER 2022-11-04 17:03 | Emergency (ER) | payer MEDICARE, MEDICAID ==
[~2022-11-04] VITALS: Ht 167.6 cm; Wt 73.9 kg
[2022-11-04 17:41] LABS: HEMATOCRIT 31.6 % (37.0-47.0); MEAN CELL VOLUME 109.7 fl (81.0-99.0); MEAN CORPUSCULAR HGB 39.2 pg (27.0-31.0); MEAN CORPUSCULAR HGB CONC 35.8 g/dl (33.0-37.0); MEAN PLATELET VOLUME 10.6 fl (9.6-12.3); PLATELET COUNT AUTOMATED 390 10*3/uL (130-400); RED BLOOD COUNT 2.88 10*6/uL (4.10-5.10); RED CELL DISTRI WIDTH 14.6 % (0-14.5); WHITE BLOOD COUNT 3.2 10*3/uL (4.8-10.8)
[2022-11-04 17:46] LABS: MANUAL DIFF REFLEX YES
[2022-11-04 17:58] LABS: INTERNATIONAL NORM RATIO 1.2 (2.0-3.5)
[2022-11-04 18:02] LABS: ALKALINE PHOSPHATASE 79 U/L (46-116); BUN 9 mg/dl (9-23); CHLORIDE 104 mmol/L (98-107); LIPASE 32 U/L (12-53); POTASSIUM 4.1 mmol/L (3.4-5.1); SGPT/ALT 11 U/L (10-49); TOTAL PROTEIN 7.4 gm/dL (6.0-8.0)
[2022-11-04 18:28] LABS: TOTAL CELLS COUNTED 100 #CELLS
[2022-11-04 18:34] LABS: PLATELET SUFFICIENCY NORMAL (NORMAL)
[2022-11-04 18:35] LABS: POLYCHROMASIA SLIGHT
[2022-11-04 18:57] LABS: BILIRUBIN Negative (Negative); BLOOD Negative (Negative); CLARITY Clear (Clear); COLOR Yellow (Yellow); GLUCOSE Negative (Negative); KETONE Negative (Negative); LEUKO ESTERASE Trace (Negative); NITRITE Negative (Negative); PH 6.5 (4.5-8.0)
[2022-11-04 19:06] LABS: BACTERIA 1+
== END 2022-11-04 22:23 | disposition home or self-care (01) ==
LOC: ED 17:03
PROVIDERS: Internal Medicine
DX: R42 Dizziness and giddiness (principal); T45.1X5A Adverse effect of antineoplastic and immunosuppressive drugs, initial encounter; E87.20 Acidosis, unspecified; D72.819 Decreased white blood cell count, unspecified; D53.9 Nutritional anemia, unspecified; N18.31 Chronic kidney disease, stage 3a; Z88.5 Allergy status to narcotic agent; Z88.0 Allergy status to penicillin; Z79.899 Other long term (current) drug therapy; Z98.890 Other specified postprocedural states; Z90.49 Acquired absence of other specified parts of digestive tract; Z87.42 Personal history of other diseases of the female genital tract; Z98.51 Tubal ligation status; Z87.891 Personal history of nicotine dependence; Y92.89 Other specified places as the place of occurrence of the external cause

== ENCOUNTER 2023-08-11 19:25 | Emergency (ER) | payer MEDICARE, MEDICAID ==
[~2023-08-11] VITALS: Ht 167.6 cm; Wt 74.8 kg
[~2023-08-11 19:25] MED LIST changes: +CEFEPIME HYDROCH2 GM IJ; +GABAPENTIN600 MG PO; +IBU800 M1 PO; +PROVENTIL HFA6.7 GM INH; +SODIUM CHLORI1000 M2 IV; +XARE20MG PO
[2023-08-11] MEDS ORDERED: SODIUM CHLORIDE 0.9% 1,000 ML IV SCH (20:00)
[2023-08-11] MEDS ORDERED: IOHEXOL 300 MG/ML 100 ML VIAL IV ONE (20:05)
[2023-08-11 20:32] LABS: HEMATOCRIT 38.9 % (37.0-47.0); MEAN CELL VOLUME 99.7 fl (81.0-99.0); MEAN CORPUSCULAR HGB 34.1 pg (27.0-31.0); MEAN CORPUSCULAR HGB CONC 34.2 g/dl (33.0-37.0); MEAN PLATELET VOLUME 8.7 fl (9.6-12.3); PLATELET COUNT AUTOMATED 433 10*3/uL (130-400); RED CELL DISTRI WIDTH 13.3 % (0-14.5); WHITE BLOOD COUNT 7.9 10*3/uL (4.8-10.8)
[2023-08-11 20:34] LABS: MANUAL DIFF REFLEX YES
[2023-08-11 20:44] LABS: ACT PARTIAL THROMBO TIME 24.2 SECONDS (20.0-32.1)
[2023-08-11 20:52] LABS: BASOPHILS 2 % (0-1); PLATELET SUFFICIENCY HIGH (NORMAL); TOTAL CELLS COUNTED 100 #CELLS
[2023-08-11 20:53] LABS: OVALOCYTES FEW
[2023-08-11 20:54] LABS: ALKALINE PHOSPHATASE 73 U/L (46-116); BUN 9 mg/dl (9-23); CHLORIDE 105 mmol/L (98-107); ETHYL ALCOHOL 184.6 mg/dl (<3); LIPASE 33 U/L (12-53); POTASSIUM 3.4 mmol/L (3.4-5.1); SGPT/ALT 13 U/L (5-49); TOTAL PROTEIN 7.7 gm/dL (6.0-8.0)
[2023-08-11 21:04] LABS: BILIRUBIN Negative (Negative); BLOOD Negative (Negative); CLARITY Cloudy (Clear); COLOR Yellow (Yellow); GLUCOSE Negative (Negative); KETONE Negative (Negative); LEUKO ESTERASE Trace (Negative); NITRITE Negative (Negative); PH 5.5 (4.5-8.0); UROBILINOGEN 0.2 E.U./dl (0.0-1.0)
[2023-08-11 21:10] LABS: URINE AMPHETAMINES Negative (1000ng/ml); URINE BARBITURATES Negative (200ng/ml); URINE BENZODIAZEPINES Negative (200ng/ml); URINE CANNABINOIDS (THC) Negative (50ng/ml); URINE COCAINE Positive (300ng/ml); URINE METHADONE Negative (300ng/ml); URINE OPIATES Negative (300ng/ml); URINE PHENCYCLIDINE Negative (25ng/ml)
[2023-08-11 21:12] LABS: BACTERIA 2+
[2023-08-11] MEDS ORDERED: CIPRO500 MG PO (22:42)
== END 2023-08-11 23:32 | disposition left against medical advice (07) ==
LOC: ED 19:25
PROVIDERS: Internal Medicine
DX: N39.0 Urinary tract infection, site not specified (principal); R11.2 Nausea with vomiting, unspecified; F10.129 Alcohol abuse with intoxication, unspecified; Z91.030 Bee allergy status; Z53.29 Procedure and treatment not carried out because of patient's decision for other reasons; Z88.5 Allergy status to narcotic agent; Z88.0 Allergy status to penicillin; Z79.2 Long term (current) use of antibiotics; Z79.899 Other long term (current) drug therapy; Z90.49 Acquired absence of other specified parts of digestive tract; Z98.890 Other specified postprocedural states; Z87.42 Personal history of other diseases of the female genital tract; Z98.51 Tubal ligation status; Z87.891 Personal history of nicotine dependence

== ENCOUNTER 2023-11-19 16:15 | Emergency (ER) | payer MEDICARE, MEDICAID ==
[~2023-11-19] VITALS: Wt 83.0 kg
[~2023-11-19 16:15] MED LIST changes: +CIPRO500 MG PO
[2023-11-19] MEDS ORDERED: Lidocaine Hydrochloride 15 ML UDC PO STA (17:29)
[2023-11-19] MEDS ORDERED: MG-AL HYDROXIDE/SIMETICONE 30 ML UDC PO STA (17:29)
[2023-11-19] MEDS ORDERED: Dicyclomine Hydrochloride 20 MG/10 ML OSYR PO STA (17:29)
[2023-11-19] MEDS ORDERED: Ondansetron Hydrochloride 4 MG TAB SL ONE (17:30)
[2023-11-19 17:43] LABS: HEMATOCRIT 40.3 % (37.0-47.0); MEAN CELL VOLUME 99.5 fl (81.0-99.0); MEAN CORPUSCULAR HGB 33.6 pg (27.0-31.0); MEAN CORPUSCULAR HGB CONC 33.7 g/dl (33.0-37.0); PLATELET COUNT AUTOMATED 440 10*3/uL (130-400); RED BLOOD COUNT 4.05 10*6/uL (4.10-5.10); RED CELL DISTRI WIDTH 13.6 % (0-14.5); WHITE BLOOD COUNT 9.7 10*3/uL (4.8-10.8)
[2023-11-19 17:45] LABS: MANUAL DIFF REFLEX YES
[2023-11-19 18:01] LABS: ALKALINE PHOSPHATASE 73 U/L (46-116); BUN 6 mg/dl (9-23); CHLORIDE 104 mmol/L (98-107); LIPASE 29 U/L (12-53); POTASSIUM 3.8 mmol/L (3.4-5.1); SGPT/ALT 23 U/L (5-49); TOTAL PROTEIN 7.4 gm/dL (6.0-8.0)
[2023-11-19 18:17] LABS: PLATELET SUFFICIENCY HIGH (NORMAL); TOTAL CELLS COUNTED 100 #CELLS
[2023-11-19 19:00] LABS: BILIRUBIN Negative (Negative); BLOOD Negative (Negative); CLARITY Clear (Clear); COLOR Yellow (Yellow); GLUCOSE Negative (Negative); KETONE Negative (Negative); LEUKO ESTERASE Negative (Negative); NITRITE Negative (Negative); PH 5.5 (4.5-8.0); SPECIFIC GRAVITY <= 1.005 (1.001-1.030); UROBILINOGEN 0.2 E.U./dl (0.0-1.0)
[2023-11-19 19:12] LABS: BACTERIA 1+
[2023-11-19] MEDS ORDERED: Ondansetron4 MG PO (19:24)
[2023-11-19] MEDS ORDERED: Ondansetron 4 MG 2 TAB ED PACK PO SCH (19:35)
== END 2023-11-19 19:34 | disposition home or self-care (01) ==
LOC: ED 16:15
PROVIDERS: Nurse Practitioner Family
DX: R10.9 Unspecified abdominal pain (principal); R11.0 Nausea; F31.9 Bipolar disorder, unspecified; E78.5 Hyperlipidemia, unspecified; F10.10 Alcohol abuse, uncomplicated; Z91.030 Bee allergy status; Z88.5 Allergy status to narcotic agent; Z88.0 Allergy status to penicillin; Z90.49 Acquired absence of other specified parts of digestive tract; Z98.890 Other specified postprocedural states; Z98.51 Tubal ligation status; Z87.891 Personal history of nicotine dependence

== ENCOUNTER 2024-06-20 20:56 | Emergency (ER) | payer OTHER, MEDICAID ==
[~2024-06-20] VITALS: Ht 167.6 cm; Wt 73.9 kg
[~2024-06-20 20:56] MED LIST changes: +Ondansetron4 MG PO
[2024-06-20] MEDS ORDERED: SODIUM CHLORIDE 0.9% 1,000 ML IV ONE (21:40)
[2024-06-20] MEDS ORDERED: Ondansetron Hydrochloride 4 MG/2 ML VIAL IV ONE (21:45)
[2024-06-20 22:06] LABS: BASO # 0.1 10*3/uL (0.0-0.1); BASO % 1.1 % (0.0-1.0); EOS # 0.2 10*3/uL (0.0-0.4); EOS % 1.7 % (1.0-4.0); HEMATOCRIT 43.7 % (37.0-47.0); MEAN CELL VOLUME 93.6 fl (81.0-99.0); MEAN CORPUSCULAR HGB 33.8 pg (27.0-31.0); MEAN CORPUSCULAR HGB CONC 36.2 g/dl (33.0-37.0); MEAN PLATELET VOLUME 9.4 fl (9.6-12.3); MONO % 11.1 % (3.0-9.0); NEUT # 5.3 10*3/uL (2.3-7.9); NEUT % 56.4 % (47.0-73.0); PLATELET COUNT AUTOMATED 385 10*3/uL (130-400); RED BLOOD COUNT 4.67 10*6/uL (4.10-5.10); RED CELL DISTRI WIDTH 13.2 % (0-14.5); WHITE BLOOD COUNT 9.4 10*3/uL (4.8-10.8)
[2024-06-20 22:34] LABS: ALKALINE PHOSPHATASE 70 U/L (46-116); BUN 19 mg/dl (9-23); CHLORIDE 93 mmol/L (98-107); ETHYL ALCOHOL < 3.0 mg/dl (<3); LIPASE 24 U/L (12-53); POTASSIUM 2.7 mmol/L (3.4-5.1); SGPT/ALT 19 U/L (5-49); TOTAL PROTEIN 7.8 gm/dL (6.0-8.0)
[2024-06-21] MEDS ORDERED: SIMETHICONE125 M2 PO (00:19)
== END 2024-06-21 01:10 | disposition home or self-care (01) ==
LOC: ED 20:56
PROVIDERS: Internal Medicine
DX: R14.1 Gas pain (principal); R11.2 Nausea with vomiting, unspecified; I10 Essential (primary) hypertension; F31.9 Bipolar disorder, unspecified; E78.5 Hyperlipidemia, unspecified; F10.10 Alcohol abuse, uncomplicated; Z87.891 Personal history of nicotine dependence; Z91.030 Bee allergy status; Z88.5 Allergy status to narcotic agent; Z88.0 Allergy status to penicillin; Z90.49 Acquired absence of other specified parts of digestive tract; Z98.890 Other specified postprocedural states; Z98.51 Tubal ligation status

== ENCOUNTER → 2025-02-05 | Outpatient (CLI) | payer OTHER, MEDICAID ==
[~2025-02-05] MED LIST changes: +SIMETHICONE125 M2 PO
== END | disposition home or self-care (01) ==
LOC: LAB 03:00
PROVIDERS: ATTEND Nurse Practitioner Family
DX: R80.9 Proteinuria, unspecified (principal)